=== PATIENT | male | born 1955 | race Caucasian/White ===

== ENCOUNTER 2018-10-22 02:09 | Emergency (ER) | payer MEDICARE, OTHER ==
[2018-10-22] MEDS ORDERED: Sodium Chloride 0.9% 1,000 ML IV SCH (02:15)
--- NOTE | 2018-10-22 02:26 | EDM.PDOC ---
ED HPI GENERAL MEDICAL PROBLEM - General Chief Complaint: Respiratory Problem Stated Complaint: AMB Time Seen by Provider: 10/22/18 02:25 Source of Information: Reports: Patient - History of Present Illness INITIAL COMMENTS - FREE TEXT/NARRATIVE: HISTORY AND PHYSICAL: History of present illness: [Patient presents with shortness of breath she arrives via EMS, EMS had reported some short runs of V. tach and provided lidocaine at that time On arrival here he is hemodynamically stable he has atrial fibrillation on our manager monitoring with RVR rate 140s to 160s Cardizem provided patient has no complaints of chest pain shortness of breath headache dizziness or palpitation this time Review of systems: As per history of present illness and below otherwise all systems reviewed and negative. Past medical history: As per history of present illness and as reviewed below otherwise noncontributory. Surgical history: As per history of present illness and as reviewed below otherwise noncontributory. Social history: No reported history of drug or alcohol abuse. Family history: As per history of present illness and as reviewed below otherwise noncontributory. Physical exam: HEENT: Atraumatic, normocephalic, pupils reactive, negative for conjunctival pallor or scleral icterus, mucous membranes moist, throat clear, neck supple, nontender, trachea midline. Lungs: Clear to auscultation, breath sounds equal bilaterally, chest nontender. Heart: S1S2, regular, negative for clicks, rubs, or JVD. Abdomen: Soft, nondistended, nontender. Negative for masses or hepatosplenomegaly. Negative for costovertebral tenderness. Pelvis: Stable nontender. Genitourinary: Deferred. Rectal: Deferred. Extremities: Atraumatic, negative for cords or calf pain. Neurovascular unremarkable. Neuro: Awake, alert, oriented. Cranial nerves II through XII unremarkable. Cerebellum unremarkable. Motor and sensory unremarkable throughout. Exam nonfocal. Diagnostics: [CBC INR available at time of dictation CMP troponin pending] Therapeutics: EMS had provided lidocaine, as they had some short runs of V. tach [Normal saline Lovenox Cardizem A shunt transferred Luica Cedeno accepting ] Impression: [ A. fib with RVR multiple PVCs V. tach witnessed by EMS ] Definitive disposition and diagnosis as appropriate pending reevaluation and review of above. - Related Data Allergies Allergy/AdvReac Type Severity Reaction Status Date / Time adhesive Allergy Itching Verified 09/22/14 11:57 Home Meds: Home Meds atorvaSTATin Calcium [Atorvastatin Calcium] 20 mg PO BEDTIME 09/10/14 [History] Docusate Sodium [Dulcolax Stool Softener] 100 mg PO DAILY 09/22/14 [History] Amiodarone HCl 100 mg PO DAILY 10/22/18 [History] Furosemide [Lasix] 60 mg PO DAILY 10/22/18 [History] Losartan [Cozaar] 25 mg PO DAILY 10/22/18 [History] Metoprolol Succinate 50 mg PO DAILY 10/22/18 [History] Rivaroxaban [Xarelto] 20 mg PO DAILY 10/22/18 [History] Spironolactone [Aldactone] 25 mg PO DAILY 10/22/18 [History] Past Medical History - Past Surgical History Other Male Surgeries/Procedures: Prostate CA Other Neurological Surgeries/Procedures: craniectomy Other Musculoskeletal Surgeries/Procedures:: left ankle "pins" ED ROS GENERAL - Review of Systems Review Of Systems: See Below ED EXAM, GENERAL - Physical Exam Exam: See Below Course - Vital Signs Last Recorded V/S: Last Vital Signs Temp 98.7 F 10/22/18 02:24 Pulse 158 H 10/22/18 02:24 Resp 22 H 10/22/18 02:24 BP 101/59 L 10/22/18 02:24 Pulse Ox 96 10/22/18 02:24 - Orders/Labs/Meds Orders: Active Orders 24 hr Category Date Time Status EKG Documentation Completion [RC] STAT Care 10/22/18 02:13 Active B-TYPE NATRIURETIC PEPTIDE,BNP [CHEM] Stat Lab 10/22/18 02:21 Received CKMB [CHEM] Stat Lab 10/22/18 02:21 Received COMPREHENSIVE METABOLIC PN,CMP [CHEM] Stat Lab 10/22/18 02:21 Received CREATINE KINASE,CK [CHEM] Stat Lab 10/22/18 02:21 Received TROPONIN I [CHEM] Stat Lab 10/22/18 02:21 Received UA RFX JOSH AND CULT IF INDIC [URIN] Stat Lab 10/22/18 02:13 Ordered Sodium Chloride 0.9% [Normal Saline] 1,000 ml Med 10/22/18 02:15 Active IV STAT Medication Orders Sodium Chloride (Normal Saline) 1,000 mls @ 125 mls/hr IV STAT DELMI Last Admin: 10/22/18 02:23 Dose: 125 mls/hr Labs: Laboratory Tests 10/22/18 10/22/18 Range/Units 02:21 02:21 WBC 9.06 (4.0-11.0) K/uL RBC 4.66 (4.50-5.90) M/uL Hgb 14.4 (13.0-17.0) g/dL Hct 42.4 (38.0-50.0) % MCV 91.0 (80.0-98.0) fL MCH 30.9 (27.0-32.0) pg MCHC 34.0 (31.0-37.0) g/dL RDW Std Deviation 45.0 (28.0-62.0) fl RDW Coeff of Jeff 14 (11.0-15.0) % Plt Count 106 L (150-400) K/uL MPV 11.40 (7.40-12.00) fL Neut % (Auto) 90.1 H (48.0-80.0) % Lymph % (Auto) 2.8 L (16.0-40.0) % [place] % (Auto) 7.0 (0.0-15.0) % Eos % (Auto) 0.1 (0.0-7.0) % Baso % (Auto) 0.0 (0.0-1.5) % Neut # (Auto) 8.2 H (1.4-5.7) K/uL Lymph # (Auto) 0.3 L (0.6-2.4) K/uL [place] # (Auto) 0.6 (0.0-0.8) K/uL Eos # (Auto) 0.0 (0.0-0.7) K/uL Baso # (Auto) 0.0 (0.0-0.1) K/uL Nucleated RBC % 0.0 /100WBC Nucleated RBCs # 0 K/uL INR 1.29 Meds: Medications Generic Name Dose Route Start Last Admin Trade Name Freq PRN Reason Stop Dose Admin Sodium Chloride 1,000 mls @ 125 mls/hr 10/22/18 02:15 10/22/18 02:23 Normal Saline IV 125 mls/hr STAT DELMI Administration Discontinued Medications Generic Name Dose Route Start Last Admin Trade Name Freq PRN Reason Stop Dose Admin Diltiazem HCl 20 mg 10/22/18 02:29 10/22/18 02:36 Diltiazem IVPUSH 10/22/18 02:30 20 mg ONETIME ONE Administration Diltiazem HCl 20 mg 10/22/18 02:50 10/22/18 02:54 Diltiazem IVPUSH 10/22/18 02:51 20 mg ONETIME ONE Administration Diltiazem HCl Confirm 10/22/18 02:52 10/22/18 03:01 Diltiazem Administered 10/22/18 02:53 Not Given Dose 25 mg .ROUTE .STK-MED ONE Enoxaparin Sodium 300 mg 10/22/18 02:27 10/22/18 02:42 Lovenox SUBCUT 10/22/18 02:28 Not Given ONETIME ONE Enoxaparin Sodium 60 mg 10/22/18 02:27 10/22/18 02:43 Lovenox SUBCUT 10/22/18 02:28 Not Given ONETIME ONE Enoxaparin Sodium 163 mg 10/22/18 02:29 10/22/18 02:44 Lovenox SUBCUT 10/22/18 02:30 Not Given ONETIME ONE Departure - Departure Time of Disposition: 03:07 Disposition: DC/Tfer to Acute Hospital 02 Condition: Poor Clinical Impression: Atrial fibrillation with RVR - Discharge Information Forms: ED Department Discharge - My Orders Last 24 Hours: My Active Orders 10/22/18 02:13 EKG Documentation Completion [RC] STAT UA RFX JOSH AND CULT IF INDIC [URIN] Stat 10/22/18 02:15 Sodium Chloride 0.9% [Normal Saline] 1,000 ml IV STAT 10/22/18 02:21 B-TYPE NATRIURETIC PEPTIDE,BNP [CHEM] Stat CKMB [CHEM] Stat COMPREHENSIVE METABOLIC PN,CMP [CHEM] Stat CREATINE KINASE,CK [CHEM] Stat TROPONIN I [CHEM] Stat - Assessment/Plan Last 24 Hours: My Active Orders 10/22/18 02:13 EKG Documentation Completion [RC] STAT UA RFX JOSH AND CULT IF INDIC [URIN] Stat 10/22/18 02:15 Sodium Chloride 0.9% [Normal Saline] 1,000 ml IV STAT 10/22/18 02:21 B-TYPE NATRIURETIC PEPTIDE,BNP [CHEM] Stat CKMB [CHEM] Stat COMPREHENSIVE METABOLIC PN,CMP [CHEM] Stat CREATINE KINASE,CK [CHEM] Stat TROPONIN I [CHEM] Stat
[2018-10-22] MEDS ORDERED: Enoxaparin 150 MG/1 ML Syringe SUBCUT ONE (02:27)
[2018-10-22] MEDS ORDERED: Enoxaparin 60 MG/0.6 ML Syringe SUBCUT ONE (02:27)
[2018-10-22] MEDS ORDERED: Diltiazem 25 MG/5 ML SDV IVPUSH ONE ×2 (02:29→02:50)
[2018-10-22] MEDS ORDERED: Enoxaparin 100 MG/1 ML Syringe SUBCUT ONE (02:29)
[2018-10-22] MEDS ORDERED: Diltiazem 25 MG/5 ML SDV ONE (02:52)
--- NOTE | 2018-10-22 02:55 | CR ---
Indication: Chest pain. SOB Technique: Chest 1 view Comparison: None Findings/Impression: Cardiovascular and mediastinum: Cardiomegaly, partially related to the portable technique. Sternotomy sutures. A left chest cardiac pacer. Lungs and pleural space: Apparent prominent epicardial fat pads. No gross consolidation or definite pleural effusions. Bones and soft tissues: No significant findings. Dictated by Osvaldo Encarnacion MD @ 10/22/2018 2:53:28 AM Dictated by: Osvaldo Encarnacion MD @ 10/22/2018 02:53:33 (Electronically Signed)
[2018-10-22 03:08] LABS: BLOOD UREA NITROGEN,BUN 45 mg/dL (7.0-18.0); CHLORIDE,CL 99 mmol/L (98-107); GLUCOSE RANDOM 176 mg/dL (74-106); POTASSIUM,K 4.5 mmol/L (3.5-5.1); SODIUM,NA 133 mmol/L (136-148)
[2018-10-22 05:39] VITALS: BP 75/39; PULSE 142
== END 2018-10-22 04:15 ==
LOC: MW.ED 02:09
DX: I48.91 Unspecified atrial fibrillation (principal); I49.3 Ventricular premature depolarization; I47.2 Ventricular tachycardia; Z91.048 Other nonmedicinal substance allergy status; Z79.899 Other long term (current) drug therapy; Z98.890 Other specified postprocedural states
CPT/HCPCS: 36415; 71045; 80053; 82550; 82553; 83880; 84484; 85025; 85610; 93005; 96361; 96374; 99285; J3490; J7040; 99284

== ENCOUNTER 2018-11-13 10:40 | Emergency (ER) | payer MEDICARE, OTHER ==
[2018-11-13] MEDS ORDERED: Sodium Chloride 0.9% 10 ML Syringe FLUSH PRN (10:45)
[2018-11-13] MEDS ORDERED: Sodium Chloride 0.9% 1,000 ML IV ONE (10:45)
[2018-11-13] MEDS ORDERED: Sodium Chloride 0.9% 2.5 ML Syringe FLUSH PRN (10:45)
--- NOTE | 2018-11-13 10:51 | EDM.PDOC ---
ED HPI GENERAL MEDICAL PROBLEM - General Chief Complaint: General Stated Complaint: kidney failure Time Seen by Provider: 11/13/18 10:42 Source of Information: Reports: Patient History Limitations: Reports: No Limitations - History of Present Illness INITIAL COMMENTS - FREE TEXT/NARRATIVE: HISTORY AND PHYSICAL: History of present illness: Patient is a 63-year-old male who presents to the emergency room from our IV infusion center to facilitate transfer to [facility] due to elevated BUN/ Creatinine. Patient had initially been seen in our emergency room on 10/22/18 for V. tach which was converted with lidocaine into A. fib with RVR. At that time he was transferred to [facility] in [place] and was diagnosed with endocarditis. He was seen and treated by Dr. Sharma and Tereso. He has been receiving IV Gentamicin and Cubicin. They had stopped the Cubicin, due to some abnormal lab values - but continues to receive the IV gentamicin. It was noted that he did have an elevated BUN and creatinine previously in [place]; but when it was rechecked on 11/12/2018 they were concerned it would require some dialysis. Patient presented to the IV infusion center for his routine gentamicin, he was informed by the nursing staff that the labs were abnormal and they wanted to hold the gentamicin and that he may possibly need dialysis. Patient offers no current complaints or concerns. He states he has actually been feeling better since being discharged from [facility]. Patient denies any fever, chills, headache , change in vision, syncope or near syncope. Denies any chest pain, back pain, shortness of breath or cough. Denies any abdominal pain, nausea, vomiting, diarrhea, constipation or dysuria. Has not noted any blood in urine or stool. Patient has been eating and drinking appropriately. Patient does have an extensive cardiac history including pacemaker/ defibrillator. Review of systems: As per history of present illness and below otherwise all systems reviewed and negative. Past medical history: As per history of present illness and as reviewed below otherwise noncontributory. Surgical history: As per history of present illness and as reviewed below otherwise noncontributory. Social history: See social history for further information Family history: As per history of present illness and as reviewed below otherwise noncontributory. Physical exam: General: Well-developed and well-nourished 63-year-old male. Alert and oriented. Nontoxic appearing and in no acute distress. Vital signs are stable and have been reviewed by me. HEENT: Atraumatic, normocephalic, pupils equal and reactive bilaterally, negative for conjunctival pallor or scleral icterus, mucous membranes moist, TMs normal bilaterally, throat clear, neck supple, nontender, trachea midline. No drooling or trismus noted. No meningeal signs. No hot potato voice noted. Lungs: Clear to auscultation, breath sounds equal bilaterally, chest nontender. Heart: S1S2, regular rate and rhythm without overt murmur Abdomen: Soft, nondistended, obese, nontender. Negative for masses. Negative for costovertebral tenderness. Pelvis: Stable nontender. Skin: Intact, warm, dry. PICC line noted to right upper extremity. No lesions or rashes noted. Extremities: Atraumatic, moves all extremities per self without difficulty or deficits, negative for cords or calf pain. No pitting edema to distal extremities bilaterally. Neurovascular unremarkable. Neuro: Awake, alert, oriented. Cranial nerves II through XII unremarkable. Cerebellum unremarkable. Motor and sensory unremarkable throughout. Exam nonfocal. Notes: Patient states that he is agreeable to repeat lab work. He states that he and his are hesitant about being transferred to [facility] as he feels "so well" . Dr Ramos, hospitalist at [facility], was consulted on this case. He is agreeable to seeing this patient for further care and management. Patient is aware and agreeable to plan of care. Diagnostics: CBC, CMP, INR, EKG, chest x-ray Therapeutics: IV fluid Impression: History of endocarditis Renal failure Plan: Transfer to [facility] Definitive disposition and diagnosis as appropriate pending reevaluation and review of above. - Related Data Allergies Allergy/AdvReac Type Severity Reaction Status Date / Time adhesive Allergy Itching Verified 11/13/18 10:51 Home Meds: Home Meds atorvaSTATin Calcium [Atorvastatin Calcium] 20 mg PO BEDTIME 09/10/14 [History] Docusate Sodium [Dulcolax Stool Softener] 100 mg PO DAILY 09/22/14 [History] Amiodarone HCl 100 mg PO DAILY 10/22/18 [History] Furosemide [Lasix] 60 mg PO DAILY 10/22/18 [History] Losartan [Cozaar] 25 mg PO DAILY 10/22/18 [History] Metoprolol Succinate 50 mg PO DAILY 10/22/18 [History] Spironolactone [Aldactone] 25 mg PO DAILY 10/22/18 [History] Warfarin Sodium [Coumadin] 1 mg PO 11/13/18 [History] Past Medical History Cardiovascular History: Reports: Angina, Heart Failure, Heart Valve Replacement , High Cholesterol, Hypertension, SOB on Exertion Other Cardiovascular History: quad bypass 3 yrs ago in [place], 1 yr ago aortic valve replacement and pacemaker/defib 1 yr ago in [facility] Respiratory History: Reports: COPD Oncologic (Cancer) History: Reports: Prostate - Past Surgical History Other Male Surgeries/Procedures: Prostate CA Other Neurological Surgeries/Procedures: craniectomy Other Musculoskeletal Surgeries/Procedures:: left ankle "pins" Social & Family History - Family History Family Medical History: Noncontributory - Caffeine Use Caffeine Use: Reports: Coffee ED ROS GENERAL - Review of Systems Review Of Systems: ROS reveals no pertinent complaints other than HPI. ED EXAM, GENERAL - Physical Exam Exam: See Below (See dictation) Course - Vital Signs Last Recorded V/S: Last Vital Signs Temp 96.7 F 11/13/18 10:48 Pulse 78 11/13/18 11:19 Resp 18 11/13/18 11:19 BP 112/84 11/13/18 11:19 Pulse Ox 95 11/13/18 11:19 - Orders/Labs/Meds Orders: Active Orders 24 hr Category Date Time Status EKG Documentation Completion [RC] STAT Care 11/13/18 10:45 Active Chest 1V Frontal [CR] Stat Exams 11/13/18 10:45 Ordered COMPREHENSIVE METABOLIC PN,CMP [CHEM] Stat Lab 11/13/18 10:45 Ordered INR,PT,PROTHROMBIN TIME [COAG] Stat Lab 11/13/18 11:10 Received UA RFX JOSH AND CULT IF INDIC [URIN] Stat Lab 11/13/18 10:45 Ordered Sodium Chloride 0.9% [Normal Saline] 1,000 ml Med 11/13/18 10:45 Active IV STAT Sodium Chloride 0.9% [Saline Flush] Med 11/13/18 10:45 Active 10 ml FLUSH ASDIRECTED PRN Sodium Chloride 0.9% [Saline Flush] Med 11/13/18 10:45 Active 2.5 ml FLUSH ASDIRECTED PRN Saline Lock Insert [OM.PC] Stat Oth 11/13/18 10:45 Ordered Medication Orders Sodium Chloride (Normal Saline) 1,000 mls @ 250 mls/hr IV STAT ONE Stop: 11/13/18 14:44 Last Admin: 11/13/18 11:14 Dose: 250 mls/hr Sodium Chloride (Saline Flush) 10 ml FLUSH ASDIRECTED PRN PRN Reason: Keep Vein Open Sodium Chloride (Saline Flush) 2.5 ml FLUSH ASDIRECTED PRN PRN Reason: Keep Vein Open Labs: Laboratory Tests 11/13/18 Range/Units 08:23 WBC 7.70 (4.0-11.0) K/uL RBC 3.89 L (4.50-5.90) M/uL Hgb 11.9 L (13.0-17.0) g/dL Hct 36.4 L (38.0-50.0) % MCV 93.6 (80.0-98.0) fL MCH 30.6 (27.0-32.0) pg MCHC 32.7 (31.0-37.0) g/dL RDW Std Deviation 49.1 (28.0-62.0) fl RDW Coeff of Jeff 14 (11.0-15.0) % Plt Count 220 (150-400) K/uL MPV 11.40 (7.40-12.00) fL Neut % (Auto) 68.9 (48.0-80.0) % Lymph % (Auto) 13.5 L (16.0-40.0) % [place] % (Auto) 11.2 (0.0-15.0) % Eos % (Auto) 6.0 (0.0-7.0) % Baso % (Auto) 0.4 (0.0-1.5) % Neut # (Auto) 5.3 (1.4-5.7) K/uL Lymph # (Auto) 1.0 (0.6-2.4) K/uL [place] # (Auto) 0.9 H (0.0-0.8) K/uL Eos # (Auto) 0.5 (0.0-0.7) K/uL Baso # (Auto) 0.0 (0.0-0.1) K/uL Nucleated RBC % 0.0 /100WBC Nucleated RBCs # 0 K/uL Meds: Medications Generic Name Dose Route Start Last Admin Trade Name Freq PRN Reason Stop Dose Admin Sodium Chloride 1,000 mls @ 250 mls/hr 11/13/18 10:45 11/13/18 11:14 Normal Saline IV 11/13/18 14:44 250 mls/hr STAT ONE Administration Sodium Chloride 10 ml 11/13/18 10:45 Saline Flush FLUSH ASDIRECTED PRN Keep Vein Open Sodium Chloride 2.5 ml 11/13/18 10:45 Saline Flush FLUSH ASDIRECTED PRN Keep Vein Open Departure - Departure Time of Disposition: 11:30 Disposition: DC/Tfer to [facility] 02 Clinical Impression: History of endocarditis Renal failure Qualifiers: Renal failure chronicity: acute Acute renal failure type: unspecified Qualified Code(s): N17.9 - Acute kidney failure, unspecified - Discharge Information Referrals: PCP,None [Primary Care Provider] - Forms: ED Department Discharge - My Orders Last 24 Hours: My Active Orders 11/13/18 10:45 EKG Documentation Completion [RC] STAT Chest 1V Frontal [CR] Stat COMPREHENSIVE METABOLIC PN,CMP [CHEM] Stat UA RFX JOSH AND CULT IF INDIC [URIN] Stat Sodium Chloride 0.9% [Normal Saline] 1,000 ml IV STAT Sodium Chloride 0.9% [Saline Flush] 10 ml FLUSH ASDIRECTED PRN Sodium Chloride 0.9% [Saline Flush] 2.5 ml FLUSH ASDIRECTED PRN Saline Lock Insert [OM.PC] Stat 11/13/18 11:10 INR,PT,PROTHROMBIN TIME [COAG] Stat - Assessment/Plan Last 24 Hours: My Active Orders 11/13/18 10:45 EKG Documentation Completion [RC] STAT Chest 1V Frontal [CR] Stat COMPREHENSIVE METABOLIC PN,CMP [CHEM] Stat UA RFX JOSH AND CULT IF INDIC [URIN] Stat Sodium Chloride 0.9% [Normal Saline] 1,000 ml IV STAT Sodium Chloride 0.9% [Saline Flush] 10 ml FLUSH ASDIRECTED PRN Sodium Chloride 0.9% [Saline Flush] 2.5 ml FLUSH ASDIRECTED PRN Saline Lock Insert [OM.PC] Stat 11/13/18 11:10 INR,PT,PROTHROMBIN TIME [COAG] Stat
--- NOTE | 2018-11-13 11:50 | CR ---
Chest: Frontal view of the chest was obtained utilizing portable technique. Comparison: Previous chest of 10/22/18. Heart is slightly prominent but accentuated from portable technique. Previous sternotomy is noted. Right-sided PICC line is present. Tip is difficult to see but is felt to lie within the right atrium. AICD is noted. Lungs are clear with no acute parenchymal change. Bony structures are grossly intact. Impression: 1. Right-sided PICC line. Tip of this PICC line is difficult to see but lies at least within the right atrium. 2. Other stable findings as noted above. Nothing acute is appreciated. Diagnostic code #3 MTDD
[2018-11-13 12:00] LABS: CARBON DIOXIDE,CO2 21.8 mmol/L (21.0-32.0); POTASSIUM,K 3.9 mmol/L (3.5-5.1)
[2018-11-13 13:17] VITALS: BP 107/78; PULSE 87
== END 2018-11-13 13:00 ==
LOC: MW.ED 10:40
DX: N17.9 Acute kidney failure, unspecified (principal); Z86.79 Personal history of other diseases of the circulatory system; I11.0 Hypertensive heart disease with heart failure; I50.9 Heart failure, unspecified; E78.00 Pure hypercholesterolemia, unspecified; Z91.048 Other nonmedicinal substance allergy status; Z79.899 Other long term (current) drug therapy
CPT/HCPCS: 36415; 71045; 80053; 85025; 85610; 93005; 96360; 96361; 99285; J7040; 99283

== ENCOUNTER 2019-04-03 12:39 | Emergency (ER) | payer MEDICARE, OTHER ==
[2019-04-03] MEDS ORDERED: Sodium Chloride 0.9% 10 ML Syringe FLUSH PRN (12:53)
[2019-04-03] MEDS ORDERED: Sodium Chloride 0.9% 2.5 ML Syringe FLUSH PRN (12:53)
[2019-04-03] MEDS ORDERED: Albuterol/Ipratropium 3.0-0.5 MG/3 ML Neb Soln NEB ONE (13:04)
--- NOTE | 2019-04-03 13:19 | EDM.PDOC ---
ED HPI GENERAL MEDICAL PROBLEM - General Chief Complaint: Respiratory Problem Stated Complaint: SHORTNESS OF BREATH Time Seen by Provider: 04/03/19 13:07 Source of Information: Reports: Patient, Family History Limitations: Reports: No Limitations - History of Present Illness INITIAL COMMENTS - FREE TEXT/NARRATIVE: HISTORY AND PHYSICAL: History of present illness: Patient is a 63-year-old male with history of atrial fibrillation and artificial valve on anticoagulation, CHF, hypertension, pacemaker presents to the ED for shortness of breath. Patient states he has had a cough and shortness of breath for the past week. He states the past couple of days shortness of breath is with rest and when lying flat. He denies swelling in his legs, chest pain, fevers, chills, nausea ,vomiting, abdominal pain ,diarrhea. Patient 88% on RA. Review of systems: As per history of present illness and below otherwise all systems reviewed and negative. Past medical history: As per history of present illness and as reviewed below otherwise noncontributory. Surgical history: As per history of present illness and as reviewed below otherwise noncontributory. Social history: No reported history of drug or alcohol abuse. Family history: As per history of present illness and as reviewed below otherwise noncontributory. Physical exam: General: Patient sitting comfortably in no acute distress and nontoxic appearing HEENT: Atraumatic, normocephalic, pupils reactive, negative for conjunctival pallor or scleral icterus, mucous membranes moist, throat clear, neck supple, nontender, trachea midline. No meningeal signs. Lungs: Breath sounds diminished, rhonchi of the lung bases noted. chest nontender. Heart: S1S2, regular, negative for clicks, rubs, or overt murmur. Abdomen: Soft, nondistended, nontender. Negative for masses or hepatosplenomegaly. Negative for costovertebral tenderness. No rigidity, rebound , guarding. Pelvis: Stable nontender. Genitourinary: Deferred. Rectal: Deferred. Extremities: Atraumatic, negative for cords or calf pain. Neurovascular unremarkable. Neuro: Awake, alert, oriented. Cranial nerves II through XII unremarkable. Cerebellum unremarkable. Motor and sensory unremarkable throughout. Exam nonfocal. Notes: Diagnostics: CBC, CMP, Troponin, BNP, EKG, CXR, lactate, blood culture x 2 Therapeutics: DuoNeb Zosyn IV 500mL bolus 500mL maintenance Prescriptions: none Impression: Pneumonia, hypoxia, dyspnea, elevated troponin Plan: Discussed with Dr. Matta, patient accepted for ALS ground transfer to . Definitive disposition and diagnosis as appropriate pending reevaluation and review of above. - Related Data Allergies Allergy/AdvReac Type Severity Reaction Status Date / Time adhesive Allergy Itching Verified 04/03/19 12:53 Home Meds: Home Meds Docusate Sodium [Dulcolax Stool Softener] 100 mg PO DAILY 09/22/14 [History] Furosemide [Lasix] 80 mg PO DAILY 10/22/18 [History] Metoprolol Succinate 100 mg PO DAILY 10/22/18 [History] Esomeprazole Magnesium [Nexium 24Hr] 20 mg PO DAILY 04/03/19 [History] Ferrous Sulfate [Slow Fe] 1 tab PO DAILY 04/03/19 [History] Rivaroxaban [Xarelto] 20 mg PO DAILY 04/03/19 [History] Past Medical History Cardiovascular History: Reports: Angina, Heart Failure, Heart Valve Replacement , High Cholesterol, Hypertension, SOB on Exertion Other Cardiovascular History: quad bypass 3 yrs ago in [place], 1 yr ago aortic valve replacement and pacemaker/defib [address] [facility] Respiratory History: Reports: COPD Musculoskeletal History: Reports: None Oncologic (Cancer) History: Reports: Prostate - Infectious Disease History Infectious Disease History: Reports: Chicken Pox - Past Surgical History Other Male Surgeries/Procedures: Prostate CA Other Neurological Surgeries/Procedures: craniectomy Other Musculoskeletal Surgeries/Procedures:: left ankle "pins" Social & Family History - Family History Family Medical History: Noncontributory - Tobacco Use Smoking Status *Q: Never Smoker Second Hand Smoke Exposure: No - Caffeine Use Caffeine Use: Reports: None - Recreational Drug Use Recreational Drug Use: No ED ROS GENERAL - Review of Systems Review Of Systems: Comprehensive ROS is negative, except as noted in HPI. ED EXAM, GENERAL - Physical Exam Exam: See Below (see dictation) Course - Vital Signs Last Recorded V/S: Last Vital Signs Temp 96.2 F L 04/03/19 13:45 Pulse 71 04/03/19 14:15 Resp 18 04/03/19 14:00 BP 100/62 04/03/19 14:15 Pulse Ox 95 04/03/19 14:15 - Orders/Labs/Meds Orders: Active Orders 24 hr Category Date Time Status Cardiac Monitoring [RC] . DIRECTED Care 04/03/19 12:53 Active EKG Documentation Completion [RC] STAT Care 04/03/19 12:53 Active RT Aerosol Therapy [RC] ASDIRECTED Care 04/03/19 13:04 Active B-TYPE NATRIURETIC PEPTIDE,BNP [CHEM] Stat Lab 04/03/19 12:50 Received CULTURE BLOOD [BC] Stat Lab 04/03/19 12:50 Received CULTURE BLOOD [BC] Stat Lab 04/03/19 13:24 Ordered Sodium Chloride 0.9% [Normal Saline] 1,000 ml Med 04/03/19 13:53 Ordered IV STAT Sodium Chloride 0.9% [Saline Flush] Med 04/03/19 12:53 Active 10 ml FLUSH ASDIRECTED PRN Sodium Chloride 0.9% [Saline Flush] Med 04/03/19 12:53 Active 2.5 ml FLUSH ASDIRECTED PRN Blood Culture x2 Reflex Set [OM.PC] Stat Oth 04/03/19 13:23 Ordered Saline Lock Insert [OM.PC] Stat Oth 04/03/19 12:53 Ordered Medication Orders Sodium Chloride (Normal Saline) 1,000 mls @ 999 mls/hr IV STAT ONE Stop: 04/03/19 14:53 Last Admin: 04/03/19 14:11 Dose: 999 mls/hr Sodium Chloride (Saline Flush) 10 ml FLUSH ASDIRECTED PRN PRN Reason: Keep Vein Open Last Admin: 04/03/19 14:10 Dose: 10 ml Sodium Chloride (Saline Flush) 2.5 ml FLUSH ASDIRECTED PRN PRN Reason: Keep Vein Open Last Admin: 04/03/19 14:10 Dose: 2.5 ml Labs: Laboratory Tests 04/03/19 04/03/19 04/03/19 Range/Units 12:50 12:50 12:50 WBC 13.27 H (4.0-11.0) K/uL RBC 4.97 (4.50-5.90) M/uL Hgb 15.0 (13.0-17.0) g/dL Hct 45.7 (38.0-50.0) % MCV 92.0 (80.0-98.0) fL MCH 30.2 (27.0-32.0) pg MCHC 32.8 (31.0-37.0) g/dL RDW Std Deviation 50.6 (28.0-62.0) fl RDW Coeff of Jeff 15 (11.0-15.0) % Plt Count 174 (150-400) K/uL MPV 12.80 H (7.40-12.00) fL Neut % (Auto) 87.8 H (48.0-80.0) % Lymph % (Auto) 4.1 L (16.0-40.0) % Mora % (Auto) 8.0 (0.0-15.0) % Eos % (Auto) 0.0 (0.0-7.0) % Baso % (Auto) 0.1 (0.0-1.5) % Neut # (Auto) 11.7 H (1.4-5.7) K/uL Lymph # (Auto) 0.5 L (0.6-2.4) K/uL Mora # (Auto) 1.1 H (0.0-0.8) K/uL Eos # (Auto) 0.0 (0.0-0.7) K/uL Baso # (Auto) 0.0 (0.0-0.1) K/uL Nucleated RBC % 0.3 /100WBC Nucleated RBCs # 0 K/uL INR Lactate 4.6 H* (0.20-2.00) mmol/L Sodium 140 (136-148) mmol/L Potassium 4.1 (3.5-5.1) mmol/L Chloride 100 (98-107) mmol/L Carbon Dioxide 21.5 (21.0-32.0) mmol/L BUN 53 H (7.0-18.0) mg/dL Creatinine 2.8 H (0.8-1.3) mg/dL Est Cr Clr Drug Dosing 28.01 mL/min Estimated GFR (MDRD) 22.9 ml/min Glucose 219 H (74-106) mg/dL Calcium 9.2 (8.5-10.1) mg/dL Total Bilirubin 1.4 H (0.2-1.0) mg/dL AST 254 H (15-37) IU/L ALT 203 H (14-63) IU/L Alkaline Phosphatase 78 (46-116) U/L Troponin I 0.152 H* (0.000-0.056) ng/mL Total Protein 7.3 (6.4-8.2) g/dL Albumin 3.1 L (3.4-5.0) g/dL Globulin 4.2 H (2.6-4.0) g/dL Albumin/Globulin Ratio 0.7 L (0.9-1.6) 04/03/19 Range/Units 12:50 WBC (4.0-11.0) K/uL RBC (4.50-5.90) M/uL Hgb (13.0-17.0) g/dL Hct (38.0-50.0) % MCV (80.0-98.0) fL MCH (27.0-32.0) pg MCHC (31.0-37.0) g/dL RDW Std Deviation (28.0-62.0) fl RDW Coeff of Jeff (11.0-15.0) % Plt Count (150-400) K/uL MPV (7.40-12.00) fL Neut % (Auto) (48.0-80.0) % Lymph % (Auto) (16.0-40.0) % Mora % (Auto) (0.0-15.0) % Eos % (Auto) (0.0-7.0) % Baso % (Auto) (0.0-1.5) % Neut # (Auto) (1.4-5.7) K/uL Lymph # (Auto) (0.6-2.4) K/uL Mora # (Auto) (0.0-0.8) K/uL Eos # (Auto) (0.0-0.7) K/uL Baso # (Auto) (0.0-0.1) K/uL Nucleated RBC % /100WBC Nucleated RBCs # K/uL INR 1.60 Lactate (0.20-2.00) mmol/L Sodium (136-148) mmol/L Potassium (3.5-5.1) mmol/L Chloride (98-107) mmol/L Carbon Dioxide (21.0-32.0) mmol/L BUN (7.0-18.0) mg/dL Creatinine (0.8-1.3) mg/dL Est Cr Clr Drug Dosing mL/min Estimated GFR (MDRD) ml/min Glucose (74-106) mg/dL Calcium (8.5-10.1) mg/dL Total Bilirubin (0.2-1.0) mg/dL AST (15-37) IU/L ALT (14-63) IU/L Alkaline Phosphatase (46-116) U/L Troponin I (0.000-0.056) ng/mL Total Protein (6.4-8.2) g/dL Albumin (3.4-5.0) g/dL Globulin (2.6-4.0) g/dL Albumin/Globulin Ratio (0.9-1.6) Meds: Medications Generic Name Dose Route Start Last Admin Trade Name Freq PRN Reason Stop Dose Admin Sodium Chloride 1,000 mls @ 999 mls/hr 04/03/19 13:53 04/03/19 14:11 Normal Saline IV 04/03/19 14:53 999 mls/hr STAT ONE Administration Sodium Chloride 10 ml 04/03/19 12:53 04/03/19 14:10 Saline Flush FLUSH 10 ml ASDIRECTED PRN Administration Keep Vein Open Sodium Chloride 2.5 ml 04/03/19 12:53 04/03/19 14:10 Saline Flush FLUSH 2.5 ml ASDIRECTED PRN Administration Keep Vein Open Discontinued Medications Generic Name Dose Route Start Last Admin Trade Name Freq PRN Reason Stop Dose Admin Albuterol/Ipratropium 3 ml 04/03/19 13:04 04/03/19 13:17 Duoneb 3.0-0.5 Mg/3 Ml NEB 04/03/19 13:05 3 ml ONETIME ONE Administration Piperacillin Sod/Tazobactam 50 mls @ 100 mls/hr 04/03/19 13:44 04/03/19 14:10 Sod 3.375 gm/ Sodium Chloride IV 04/03/19 14:13 100 mls/hr ONETIME ONE Administration Sodium Chloride 500 mls @ 999 mls/hr 04/03/19 14:00 Normal Saline IV STAT DELMI Departure - Departure Time of Disposition: 14:42 Disposition: DC/Tfer to Acute Hospital 02 Condition: Fair Clinical Impression: Pneumonia, Hypoxia, Dyspnea, Elevated troponin - Discharge Information Referrals: Francisco Javier Tineo MD [Primary Care Provider] - Forms: ED Department Discharge Sepsis Event Note - Evaluation Sepsis Screening Result: No Definite Risk - Focused Exam Vital Signs: Vital Signs Temp Temp Pulse Resp BP Pulse Ox 04/03/19 14:15 71 100/62 95 04/03/19 14:00 64 18 109/76 93 L 04/03/19 13:45 96.2 F L 71 18 105/66 94 L 04/03/19 13:30 62 18 105/61 94 L 04/03/19 13:15 62 20 101/58 L 94 L 04/03/19 13:00 96.1 F L 62 18 100/64 93 L 04/03/19 12:48 94.8 F L 133 H 32 H 100/64 94 L Date Exam was Performed: 04/03/19 Time Exam was Performed: 14:41 - My Orders Last 24 Hours: My Active Orders 04/03/19 12:50 B-TYPE NATRIURETIC PEPTIDE,BNP [CHEM] Stat CULTURE BLOOD [BC] Stat 04/03/19 12:53 Cardiac Monitoring [RC] . DIRECTED EKG Documentation Completion [RC] STAT Sodium Chloride 0.9% [Saline Flush] 10 ml FLUSH ASDIRECTED PRN Sodium Chloride 0.9% [Saline Flush] 2.5 ml FLUSH ASDIRECTED PRN Saline Lock Insert [OM.PC] Stat 04/03/19 13:04 RT Aerosol Therapy [RC] ASDIRECTED 04/03/19 13:23 Blood Culture x2 Reflex Set [OM.PC] Stat 04/03/19 13:24 CULTURE BLOOD [BC] Stat 04/03/19 13:53 Sodium Chloride 0.9% [Normal Saline] 1,000 ml IV STAT - Assessment/Plan Last 24 Hours: My Active Orders 04/03/19 12:50 B-TYPE NATRIURETIC PEPTIDE,BNP [CHEM] Stat CULTURE BLOOD [BC] Stat 04/03/19 12:53 Cardiac Monitoring [RC] . DIRECTED EKG Documentation Completion [RC] STAT Sodium Chloride 0.9% [Saline Flush] 10 ml FLUSH ASDIRECTED PRN Sodium Chloride 0.9% [Saline Flush] 2.5 ml FLUSH ASDIRECTED PRN Saline Lock Insert [OM.PC] Stat 04/03/19 13:04 RT Aerosol Therapy [RC] ASDIRECTED 04/03/19 13:23 Blood Culture x2 Reflex Set [OM.PC] Stat 04/03/19 13:24 CULTURE BLOOD [BC] Stat 04/03/19 13:53 Sodium Chloride 0.9% [Normal Saline] 1,000 ml IV STAT
[2019-04-03 13:37] LABS: CARBON DIOXIDE,CO2 21.5 mmol/L (21.0-32.0); POTASSIUM,K 4.1 mmol/L (3.5-5.1)
--- NOTE | 2019-04-03 13:37 | CR ---
Chest: Portable view of the chest was obtained. Comparison: Prior chest x-ray of 03/11/19. Diffuse areas of consolidation is seen within the right upper and right lower lung. Heart is enlarged. Left lung is clear. Sternotomy noted. AICD is present. Impression: 1. Areas of consolidation within both right upper and right lower lung. Please correlate if patient has infectious symptoms for findings to represent diffuse right lung pneumonia. 2. Cardiomegaly and other findings which are nonacute. Diagnostic code #5 This report was dictated in [place] Standard Time
[2019-04-03] MEDS ORDERED: Piperacillin/Tazobactam 3.375 GM in Sodium Chloride 0.9% 50 ML IV ONE (13:44)
[2019-04-03] MEDS ORDERED: Sodium Chloride 0.9% 1,000 ML IV ONE (13:53)
[2019-04-03] MEDS ORDERED: Sodium Chloride 0.9% 500 ML IV SCH (14:00)
[2019-04-03 14:21] VITALS: BP 100/62; PULSE 71
== END 2019-04-03 14:55 ==
LOC: MW.ED 12:39
DX: J18.9 Pneumonia, unspecified organism (principal); R09.02 Hypoxemia; R79.89 Other specified abnormal findings of blood chemistry; I48.91 Unspecified atrial fibrillation; I11.0 Hypertensive heart disease with heart failure; I50.9 Heart failure, unspecified; Z95.0 Presence of cardiac pacemaker; Z91.09 Other allergy status, other than to drugs and biological substances; Z79.899 Other long term (current) drug therapy; Z79.01 Long term (current) use of anticoagulants; Z95.1 Presence of aortocoronary bypass graft; Z85.46 Personal history of malignant neoplasm of prostate
CPT/HCPCS: 36415; 71045; 80053; 83605; 83880; 84484; 85025; 85610; 87040; 93005; 94640; 96365; 99285; J2543; J7030; J7050; J7620-GY